=== PATIENT | female | born 1930 | race African-American/Black ===

== ENCOUNTER 2017-03-13 11:15 | Emergency (ER) | payer MEDICARE ==
[~2017-03-13] VITALS: Ht 162.6 cm; Wt 50.0 kg
[~2017-03-13 11:15] MED LIST: ULTRAM50 M1 PO
[2017-03-13 13:30] VITALS: BP 167/81
== END 2017-03-13 13:38 | disposition home or self-care (01) ==
LOC: ED 11:15
DX: R07.81 Pleurodynia (principal); W01.190A Fall on same level from slipping, tripping and stumbling with subsequent striking against furniture, initial encounter; Y92.008 Other place in unspecified non-institutional (private) residence as the place of occurrence of the external cause

== ENCOUNTER 2017-12-03 20:33 | Emergency (ER) | payer MEDICARE ==
[~2017-12-03] VITALS: Ht 162.6 cm; Wt 54.0 kg
[2017-12-03 22:56] VITALS: BP 165/58
== END 2017-12-03 22:57 | disposition home or self-care (01) ==
LOC: ED 20:33
DX: S43.401A Unspecified sprain of right shoulder joint, initial encounter (principal); F03.90 Unspecified dementia, unspecified severity, without behavioral disturbance, psychotic disturbance, mood disturbance, and anxiety; W19.XXXA Unspecified fall, initial encounter; Y92.009 Unspecified place in unspecified non-institutional (private) residence as the place of occurrence of the external cause

== ENCOUNTER 2018-11-19 10:02 | Emergency (ER) | payer MEDICARE ==
[~2018-11-19] VITALS: Ht 162.6 cm; Wt 59.0 kg
[2018-11-19 11:23] LABS: HEMOGLOBIN 13.6 g/dl (12.0-16.0); IMMATURE GRANULOCYTES 0.7 % (0.0-5.0); MEAN CELL VOLUME 98.9 fL CALC (80.0-100.0); MEAN CORPUSCULAR HGB 31.3 pG CALC (26.0-32.0); MEAN CORPUSCULAR HGB CONC 31.6 g/L CALC (32.0-36.0); NEUT# 6.3 thou/uL (2.00-7.15); RED BLOOD COUNT 4.35 mill/uL (4.20-5.60); RED CELL DISTRI WIDTH 12.8 % (11.5-15.5)
[2018-11-19 11:39] LABS: ALBUMIN 4.3 g/dL (3.2-5.0); ALKALINE PHOSPHATASE 68 u/l (38-126); BUN 14 mg/dL (8-23); BUN/CREATININE RATIO 29 (12-20 (CALC)); CARBON DIOXIDE 25 mmol/l (22-30); CHLORIDE 104 mmol/l (95-108); CREATININE 0.5 mg/dL (0.5-1.0); GFR > 60 ML/MIN (>=60 (CALC)); GFR FOR AFR.AMER. > 60 ML/MIN (>=60 (CALC)); SGOT/AST 20 u/l (9-36); SODIUM 139 mmol/l (137-146); TOTAL PROTEIN 7.8 g/dL (6.3-8.2)
[2018-11-19 11:50] LABS: MYOGLOBIN 35 ng/mL (0 - 62)
[2018-11-19 11:55] LABS: ANION GAP 15 (6-22 (CALC)); POTASSIUM 5.4 mmol/l (3.5-5.1)
[2018-11-19] MEDS ORDERED: CLEOCIN300 MG PO (12:13)
[2018-11-19 12:18] VITALS: BP 183/80
== END 2018-11-19 12:39 | disposition home or self-care (01) ==
LOC: ED 10:02
PROVIDERS: Emergency Medicine
DX: K04.7 Periapical abscess without sinus (principal); M84.48XA Pathological fracture, other site, initial encounter for fracture; F03.90 Unspecified dementia, unspecified severity, without behavioral disturbance, psychotic disturbance, mood disturbance, and anxiety; Z91.81 History of falling

== ENCOUNTER 2019-08-16 | Inpatient (IN) | payer MEDICARE ==
--- NOTE | 2019-08-14 11:30 | NUR ---
PT TO ROOM VIA WC
--- NOTE | 2019-08-14 12:00 | NUR ---
FAMILY STATES PT WAS RUNNING A FEVER AT WOUND CARE. DENIES ANY ISSUES YESTERDAY. 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 FAMILY STATES PT IS MORE LETHARGIC TODAY THEN USUAL.
--- NOTE | 2019-08-14 12:59 | NUR ---
PT RESTING ON STRETCHER, FAMILY AT BEDSIDE
[2019-08-14 13:05] LABS: IMMATURE GRANULOCYTES 0.5 % (0.0-5.0); MEAN CELL VOLUME 100.3 fL CALC (80.0-100.0); MEAN CORPUSCULAR HGB 29.6 pG CALC (26.0-32.0); MEAN CORPUSCULAR HGB CONC 29.6 g/L CALC (32.0-36.0); NEUT# 12.35 thou/uL (2.00-7.15); RED BLOOD COUNT 3.34 mill/uL (4.20-5.60); RED CELL DISTRI WIDTH 14.1 % (11.5-15.5)
[2019-08-14 13:06] LABS: HEMATOCRIT 33.5 % (37.0-47.0); HEMOGLOBIN 9.9 g/dl (12.0-16.0)
[2019-08-14 13:38] LABS: LIPASE 75 u/l (23-300)
[2019-08-14 13:44] LABS: ALBUMIN 3.4 g/dL (3.2-5.0); ALKALINE PHOSPHATASE 82 u/l (38-126); ANION GAP 12 (6-22 (CALC)); BILIRUBIN, TOTAL 0.9 mg/dL (0.0-1.4); BUN 18 mg/dL (8-23); BUN/CREATININE RATIO 48 (12-20 (CALC)); CARBON DIOXIDE 30 mmol/l (22-30); CHLORIDE 113 mmol/l (95-108); CREATININE 0.4 mg/dL (0.5-1.0); GFR > 60 ML/MIN (>=60 (CALC)); GFR FOR AFR.AMER. > 60 ML/MIN (>=60 (CALC)); POTASSIUM 4.6 mmol/l (3.5-5.1); SGOT/AST 21 u/l (9-36); SODIUM 150 mmol/l (137-146); TOTAL PROTEIN 7.5 g/dL (6.3-8.2)
--- NOTE | 2019-08-14 13:56 | NUR ---
SBAR PRINTED TO FLOOR
[2019-08-14 14:11] LABS: URINE BILIRUBIN - DIPSTICK NEGATIVE (NEGATIVE); URINE BLOOD DIPSTICK TRACE-INTACT (NEGATIVE); URINE COLOR YELLOW; URINE GLUCOSE - DIPSTICK NEGATIVE (NEGATIVE); URINE KETONE NEGATIVE (NEGATIVE); URINE LEUK ESTERASE NEGATIVE (NEGATIVE); URINE PH 5.5 (4.5-8.0); URINE PROTEIN - DIPSTICK TRACE mg/dL (NEG-TRACE); URINE SPECIFIC GRAVITY 1.025; URINE UROBILINOGEN - DIPSTICK 0.2 E.U./dL (0.2)
[2019-08-14 14:15] LABS: URINE NITRITE - DIPSTICK POSITIVE (Negative)
[2019-08-14 14:21] LABS: URINE BACTERIA MODERATE hpf; URINE MUCUS MODERATE hpf (NONE-FEW); URINE SQUAMOUS EPITHELIAL CELL MANY EPI/hpf (0-FEW)
--- NOTE | 2019-08-14 14:56 | NUR ---
PT RESTING ON STRETCHER, NO COMPLAINTS VOICE BY FAMILY
--- NOTE | 2019-08-14 15:56 | NUR ---
PT RESTING ON STRETCHER, IV PATENT WITH ANTIBIOTICS RUNNING
--- NOTE | 2019-08-14 16:10 | NUR ---
CONTACTED LIZA ALONSO FOR ORDERS.
--- NOTE | 2019-08-14 16:49 | NUR ---
ATTEMPTED REPORT TO [facility]- WILL RETURN CALL
[2019-08-14 17:25] VITALS: BP 181/83
--- NOTE | 2019-08-14 17:32 | NUR ---
MS[facility] CALLED FOR REPORT- [facility] ENGLISH ACCEPTED PT
--- NOTE | 2019-08-14 17:40 | NUR ---
PT ARRIVED TO MED/SURG ROOM 271 IN STABLE CONDITION VIA STRETCHER ACCOMPANIED BY ALAINA BROWN AND FAMILY MEMBERS;PT TRANSPORTED TO HOSPITAL BED WITH X3 PERSON ASSIST;PT A&O X0 AND NON-VERBAL;VS OBTAINED AND ASSESSMENT COMPLETED;RESPIRATIONS SHALLOW ON RA,DIMINISHED LUNG SOUNDS;ABDOMEN SOFT ON PALPATION AND ACTIVE IN ALL 4 QUADRANTS,LAST BM 08/14/19;STRONG PEDAL PULSES;X2 PRESSURE ULCERS NOTED TO LT BUTTOCK AND RT HIP WITH DRESSINGS CDI;DRESSINGS WERE PLACED AT WOUND CARE ON 08/14/19 TOWER EQUIPMENT REPAIRER;#22G TO RFA FLUSHED AND PATENT,FLUIDS INFUSING PER ORDER;ALL MEDICAL HX PRIOVIDED BY FAMILY;FALL AND ALLERGY BANDS APPLIED;ALL SAFETY PRECAUTIONS IN PLACE WITH BED IN THE LOWEST POSITION AND CALL LIGHT IN REACH;WILL CONTINUE TO MONITOR
--- NOTE | 2019-08-14 17:46 | NUR ---
Admission Note Report Given to: [facility] ENGLISH Transported by: Wheelchair X Stretcher Transported with: X Nurse Transporter X Patent IV O2 Weather Analyst Location: ICU X [facility] TRANSPORTED [place] [facility] [place]- FAMILY BROUGHT PTS WC TO ROOM
[2019-08-14 18:32] VITALS: BP 161/86
[2019-08-14 19:20] VITALS: BP 160/76
--- NOTE | 2019-08-14 19:42 | NUR ---
ASSESSMENT COMPLETED. PT. IS NON-VERBAL AND HAS DEMENTIA. PT. IS CONFUSED AND DOES NOT FOLLOW COMMANDS. DRESSINGS TO RIGHT HIP AND AND LEFT BUTTOCK ARE CDI. PT. HAS BLE CONTRACTED AND HANDS PARTIALLUY CONTRACTED WELL.SISTER IS IN AT BEDSIDE. REVIEWD BED CONTROLS AND CALL LIGHT WITH FAMILY MEMBER. IV SITE PATENT AND ORDERED BOLUS INFUSING. BED ALARM SET FOR SAFETY.
[2019-08-14 20:19] LABS: ANION GAP 10 (6-22 (CALC)); BUN 16 mg/dL (8-23); BUN/CREATININE RATIO 49 (12-20 (CALC)); CARBON DIOXIDE 27 mmol/l (22-30); CHLORIDE 114 mmol/l (95-108); CREATININE 0.3 mg/dL (0.5-1.0); GFR > 60 ML/MIN (>=60 (CALC)); GFR FOR AFR.AMER. > 60 ML/MIN (>=60 (CALC)); POTASSIUM 4.1 mmol/l (3.5-5.1); SODIUM 148 mmol/l (137-146)
--- NOTE | 2019-08-14 21:05 | NUR ---
PACKING TO LEFT BUTTOCK FELL OFF DUE TO PT. HAVING AN INCONTINENCE OF BM. CLEANSED WITH NS AND PACKED WITH SALINE GAUZE ROLL AND APPLED DRY DRESSING TO OUTER AREA. ALSO NOTED 2 OTHER OPEN AREAS TO NOTED TO BUTTOCK WELL AND SMALL DUODERMS APPLIED ALONG WITH HEART AQUACEL FOAM DRESSING OVER TOP. PT. REPOSITIONED. FAMILY REMAINS AT BEDSIDE. BED ALARM ON.
[2019-08-15] VITALS (8 sets, daily range): BP systolic 117–181; BP diastolic 53–86
--- NOTE | 2019-08-15 00:17 | NUR ---
PT. CLEANED OF A LARGE INCONTINENCE OF BM AND SMALL BM, STEPHANIE CARE GIVEN, AND NEW PADS AND GOWN APPLIED. REPOSITIONED ONTO LEFT SIDE WITH PILLOW IN BETWEEN LEGS. TEMP 100, COOL WASHCLOTH APPLIED TO FOREHEAD, WILL REASSESS. CALL LIGHT IS IN REACH. FAMILY REMAINS AT BEDSIDE.
[2019-08-15 04:22] LABS: HEMATOCRIT 36.1 % (37.0-47.0); HEMOGLOBIN 10.8 g/dl (12.0-16.0); IMMATURE GRANULOCYTES 0.3 % (0.0-5.0); MEAN CELL VOLUME 100.6 fL CALC (80.0-100.0); MEAN CORPUSCULAR HGB 30.1 pG CALC (26.0-32.0); MEAN CORPUSCULAR HGB CONC 29.9 g/L CALC (32.0-36.0); NEUT# 10.42 thou/uL (2.00-7.15); RED BLOOD COUNT 3.59 mill/uL (4.20-5.60); RED CELL DISTRI WIDTH 14.2 % (11.5-15.5)
--- NOTE | 2019-08-15 04:30 | NUR ---
PT'S IV SITE OCCLUDED AND REMOVED WITH CATHETER TIP INTACT. THIS SAMPLE BODY BUILDER ATTEMPTED X2 TIMES TO RESTART AND UNSUCCESSFUL AT THIS TIME. ALAINA CORRALES PLACED A 24 GAUGE TO RFA. PT. MEDICATED WITH ORDERED APRESOLINE FOR ELEVATED B/P; WILL REASSESS. ALSO THIS SAMPLE BODY BUILDER ALONG WITH OTHER FLOOR NURSE ATTEMPTED TO PLACE ANGLIN CATHETER PER ORDER AND UNSUCCESSFUL. PT'S FAMILY MEMBER IN AGREEMENT TO WAIT FOR NEXT SHIFT TO ATTEMPT ANGLIN CATHETER AGAIN LATER THIS AM.
[2019-08-15 05:25] LABS: ANION GAP 12 (6-22 (CALC)); BUN 15 mg/dL (8-23); BUN/CREATININE RATIO 40 (12-20 (CALC)); CARBON DIOXIDE 25 mmol/l (22-30); CHLORIDE 115 mmol/l (95-108); CREATININE 0.4 mg/dL (0.5-1.0); GFR > 60 ML/MIN (>=60 (CALC)); GFR FOR AFR.AMER. > 60 ML/MIN (>=60 (CALC)); MAGNESIUM 2.2 mg/dL (1.6-2.3); POTASSIUM 3.8 mmol/l (3.5-5.1); SODIUM 148 mmol/l (137-146)
--- NOTE | 2019-08-15 06:12 | NUR ---
PT. CHECKED FOR INCONTINENCE AND NONE NOTED. FAMILY AT BEDSIDE.
--- NOTE | 2019-08-15 07:00 | NUR ---
REPORT RECEIVED FROM ALAINA NICHOLE;PT APPEARS TO BE SLEEPING IN SUPINE POSITION WITH FAMILY MEMBER AT BEDSIDE;INTRODUCED SELF TO FAMILY AND POC DISCUSSED;RESPIRATIONS EVEN AND UNLABORED ON RA;NO S/S OF DISTRESS NOTED;ALL SAFETY PRECAUTIONS IN PLACE WITH BED IN THE LOWEST POSITION AND CALL LIGHT IN REACH;WILL CONTINUE TO MONITOR
--- NOTE | 2019-08-15 08:20 | NUR ---
PT RESTING IN SUPINE POSITION WITH FAMILY AT BEDSIDE;CONFUSED AND NON-VERBAL;VS OBTAINED AND ASSESSMENT COMPLETED;NO S/S OF DISTRESS NOTED;RESPIRATIONS EVEN AND UNLABORED ON RA,DIMINISHED LUNG SOUNDS NOTED;ABDOMEN SOFT ON PALPATION AND ACTIVE IN ALL 4 QUADRANTS;WEAK PEDAL PULSES;DRESSINGS TO RT HIP AND LEFT BUTTOCK CDI;#24G TO RFA INFUSING D5 1/2 NS @ 100ML/HR,SITE APPEARS HEALTHY;PT AND FAMILY DENY ANY ADDITIONAL NEEDS AND IS ENCOURAGED TO CALL FOR ASSISTANCE IF NEEDED;FALL PRECAUTIONS IN PLACE WITH CALL LIGHT IN REACH;WILL CONTINUE TO MONITOR
--- NOTE | 2019-08-15 10:30 | NUR ---
MULTIPLE ATTEMPTS MADE TO INSERT ANGLIN CATHETER UNSUCESSFUL OF URINE RETURN,PT BLADDER SCANNED RESULTING IN >568 IN URINE.ANGLIN CATHETER TO BE PLACED IN HOPES OF URINE RETURN PER ESTELA PERSON;WILL CONTINUE TO MONITOR
--- NOTE | 2019-08-15 12:23 | NUR ---
AT BEDSIDE DISCUSING POC WITH PT AND FAMILY MEMBER.
--- NOTE | 2019-08-15 12:30 | NUR ---
PT APPEARS TO BE SLEEPING IN SUPINE POSITION WITH FAMILY AT BEDSIDE;RESPIRATIONS SHALLOW ON RA;NO S/S OF DISTRESS NOTED;IV FLUIDS INFUSING TO RFA WITH EASE PER ORDER;ANGLIN CATHETER DRAINING TO GRAVITY BUT STILL NO URINE NOTED,ESTELA PERSON AWARE;NO NEW ORDERS RECEIVED AT THIS TIME;ASSESSMENT REMAINS UNCHANGED;ENCOURAGED TO CALL FOR ASSISTANCE IF NEEDED;FALL PRECAUTIONS IN PLACE WITH CALL LIGHT IN REACH;WILL CONTINUE TO MONITOR
--- NOTE | 2019-08-15 14:13 | NUR ---
NEW 16F ANGLIN CATHETER STARTED AT THIS TIME BY ALAINA PÉREZ AND ALAINA GONCALVES.CLOUDY/YELLOW OBTAINED.
--- NOTE | 2019-08-15 15:30 | NUR ---
PT RESTING IN SUPINE POSITION;RESPIRATIONS EVEN AND UNLABORED ON RA;NO S/S OF DISTRESS NOTED;IV FLUIDS INFUSING WITH EASE TO RFA;ANGLIN CATHETER PATENT DRAINING [place]/CLOUDY URINE TO GRAVITY;DRESSING CHANGE COMPLETED BY ALAINA EARL AND PT TOLERATED WELL;ALL SAFETY PRECAUTIONS IN PLACE WITH BED IN THE LOWEST POSITION AND CALL LIGHT IN REACH;WILL CONTINUE TO MONITOR
--- NOTE | 2019-08-15 16:29 | NUR ---
CURRENT BP 173/71 HR 108, PT TO BE MEDICATED WITH PRN APRESOLINE BY ALAINA FINNEGAN;WILL CONTINUE TO MONITOR FOR EFFECTIVENESS
--- NOTE | 2019-08-15 16:50 | NUR ---
BP RE-CHECK 117/56 HR 69
--- NOTE | 2019-08-15 19:46 | NUR ---
REPORT FROM AMBER ENGLISH. PT RESTING IN BED. FAMILY FEEDING PT AT THIS TIME. NO APPARENT DISTRESS NOTED. ANGLIN PATENT DRAINING TO GRAVITY. IV SITE APPEARS HEALTHY. AIR MATTRESS FUNCTIONING PROPERLY. CALL LIGHT WITHIN REACH. WILL CONTINUE TO MONITOR.
--- NOTE | 2019-08-15 23:02 | NUR ---
PT RESTING IN BED. NO APPARENT DISTRESS NOTED. LINNETTE REMAINS PATENT. FAMILY IN ROOM. CALL LIGHT WITHIN REACH. WILL CONTINUE TO MONITOR.
[~2019-08-16] MED LIST changes: +CLEOCIN300 MG PO; +EXELON TD
--- NOTE | 2019-08-16 01:10 | NUR ---
COMPLETE BED BATH AND LINEN CHANGE PROVIDED. PT TOLERATED WELL.
[2019-08-16 04:24] VITALS: BP 169/85
--- NOTE | 2019-08-16 04:30 | NUR ---
DRESSING CHANGED. PT REPOSITIONED. CALL LIGHT WITHIN REACH. WILL CONTINUE TO MONITOR.
[2019-08-16 05:10] LABS: HEMATOCRIT 34.5 % (37.0-47.0); HEMOGLOBIN 10.4 g/dl (12.0-16.0); IMMATURE GRANULOCYTES 0.4 % (0.0-5.0); MEAN CELL VOLUME 100.6 fL CALC (80.0-100.0); MEAN CORPUSCULAR HGB 30.3 pG CALC (26.0-32.0); MEAN CORPUSCULAR HGB CONC 30.1 g/L CALC (32.0-36.0); NEUT# 8.54 thou/uL (2.00-7.15); RED BLOOD COUNT 3.43 mill/uL (4.20-5.60); RED CELL DISTRI WIDTH 14.2 % (11.5-15.5)
[2019-08-16 05:20] LABS: ANION GAP 9 (6-22 (CALC)); BUN 11 mg/dL (8-23); BUN/CREATININE RATIO 36 (12-20 (CALC)); CARBON DIOXIDE 27 mmol/l (22-30); CHLORIDE 115 mmol/l (95-108); CREATININE 0.3 mg/dL (0.5-1.0); GFR > 60 ML/MIN (>=60 (CALC)); GFR FOR AFR.AMER. > 60 ML/MIN (>=60 (CALC)); MAGNESIUM 2.1 mg/dL (1.6-2.3); POTASSIUM 3.6 mmol/l (3.5-5.1); SODIUM 148 mmol/l (137-146)
[2019-08-16 15:10] VITALS: BP 153/70
[2019-08-16 19:30] VITALS: BP 139/66
--- NOTE | 2019-08-16 19:37 | NUR ---
PT ALERT AND NON VERBAL. NO S/S OF DISTRESS NO S/S OF SOB. ON ROOM AIR. ANGLIN PATENT. WOUND CARE TO RIGHT HIM AND LEFT BUTTOCKS. PT TOLERATED WELL. REPOSITIONED. FAMILY MEMBER AT BEDSIDE. IV TO THE RIGHT FOREARM IS PATENT. CALL JAIMES IN REACH. PT ON AIR MATTRESS. BED IN LOWEST POSITION.
[2019-08-17 03:36] VITALS: BP 160/84
--- NOTE | 2019-08-17 05:38 | NUR ---
pt given bath and dressing changed per order. family at the bedside. pt in no distress. meat boner s/s of pain. pt also repositioned.
[2019-08-17 05:49] LABS: HEMATOCRIT 30.4 % (37.0-47.0); HEMOGLOBIN 8.9 g/dl (12.0-16.0); IMMATURE GRANULOCYTES 0.4 % (0.0-5.0); MEAN CORPUSCULAR HGB 29.9 pG CALC (26.0-32.0); MEAN CORPUSCULAR HGB CONC 29.3 g/L CALC (32.0-36.0); NEUT# 8.36 thou/uL (2.00-7.15); RED BLOOD COUNT 2.98 mill/uL (4.20-5.60); RED CELL DISTRI WIDTH 14.2 % (11.5-15.5)
[2019-08-17 06:01] LABS: ANION GAP 8 (6-22 (CALC)); BUN 12 mg/dL (8-23); BUN/CREATININE RATIO 30 (12-20 (CALC)); CARBON DIOXIDE 25 mmol/l (22-30); CHLORIDE 115 mmol/l (95-108); CREATININE 0.4 mg/dL (0.5-1.0); GFR > 60 ML/MIN (>=60 (CALC)); GFR FOR AFR.AMER. > 60 ML/MIN (>=60 (CALC)); POTASSIUM 3.6 mmol/l (3.5-5.1); SODIUM 144 mmol/l (137-146)
[2019-08-17 08:55] VITALS: BP 183/73
[2019-08-17 15:47] VITALS: BP 144/70
[2019-08-17 18:48] VITALS: BP 158/91
--- NOTE | 2019-08-17 20:00 | NUR ---
PATIENT ASSESSED. NO S/S OF PAIN OR DISTRESS. REPOSITIONED FOR COMFORT; ANGLIN DRAING YELOOW CLEAR. BED N LOWEST POSITION CALL LIGHT WITHIN EASY REACH. FAMILY IN ATTENDANT
--- NOTE | 2019-08-18 | NUR ---
MEDICATION ADMINISTERED PER ORDER. PATIENT EDUCATED ON NOTIFYING IT ARCHITECTURE ANALYST IF PAIN RETURNS OR WORSENS. PATIENT EDUCATED ON MEDICATION DOSE, USE AND FREQUENCY. PATIENT VERBALIZED UNDERSTANDING. IT ARCHITECTURE ANALYST WILL CONTINUE TO MONITOR
--- NOTE | 2019-08-18 | NUR ---
PATIENT RESTING WELL. CNC CUTTING OPERATOR ASSISTED AIDE WITH BED BATH. WOUND CARE CARRIED OUT AFTER BED BATH. PT TOLERATED PROCEDURE WELL. PT REPOSITIONED ON RIGHT LATERAL SIDE
--- NOTE | 2019-08-18 03:41 | NUR ---
PATIENT RESTING AT THIS TIME. EYES CLOSED RESPIRATION EVEN AND UNLABORED. NO S/S OF DISTRESS. QUILTING MACHINE OPERATOR WILL CONTINUE TO MONITOR
[2019-08-18 04:10] VITALS: BP 128/74
[2019-08-18 07:39] VITALS: BP 150/81
--- NOTE | 2019-08-18 07:39 | NUR ---
PT RESTING IN BED, FAMILY AT BEDSIDE. PT IS NONVERAL, HAS CONTRACTURES. VITALS OBTAINED. PT IS ON AN AIR MATTRESS. RESP EVEN AND UNLABORED. CALL LIGHT IN REACH,CONTINUE TO MONITOR.
--- NOTE | 2019-08-18 09:40 | NUR ---
PT RESTING IN BED, NO SIGNS OF DISTRESS NOTED, RESP EVEN AND UNLABORED. PT NON VERBAL, SISTER AT BEDSIDE. DISCUSSED POC, DRESSING CHANGES WITH FAMILY MEMBER, VERBALIZED UNDERSTANDING. OLD DRESSING REMOVED, NOTED SEROUS DRAINAGE, CLEANSED WITH NS, PACKED WITH GAUZE SOAKED IN [place] SOLUTION, SECURED WITH ABD AND TAPE, PT TOLERATED WELL. PT HAD A BM, STEPHANIE CARE COMPLETED. REPOSITIONED IN BED, DRESSING ON L HIP COMPLETED, NOTED OPEN AREA TO COCCYX, AQUACEL PLACED. PT ON AN AIRMATTRESS, ANGLIN DRAINING CLEAR YELLOW URINE. ASSESSMENT COMPLETED, CALL LIGHT IN REACH,CONTINUE TO MONITOR.
[2019-08-18 11:33] VITALS: BP 172/70
--- NOTE | 2019-08-18 11:36 | NUR ---
PT GIVEN IV APRESOLINE FOR ELEVATED BP BY RN, PT TOLERATED WELL.
[2019-08-18 12:34] VITALS: BP 129/57
[2019-08-18] MEDS ORDERED: KEFLEX500 MG PO (13:12)
--- NOTE | 2019-08-18 16:42 | NUR ---
Discharge instructions given. Patient verbalizes understanding of same. Discharged in stable condition via Wheelchair to Home with family . All belongings sent with pt.
== END 2019-08-18 16:42 | DRG 871 ==
PROVIDERS: Family Medicine; Nurse Practitioner Family; ADMIT Internal Medicine
PROC: 0T9B70Z Drainage of Bladder with Drainage Device, Via Natural or Artificial Opening (ICD-10-PCS; principal; 2019-08-15)
DX: A41.9 Sepsis, unspecified organism (principal); L89.324 Pressure ulcer of left buttock, stage 4; L89.214 Pressure ulcer of right hip, stage 4; E43 Unspecified severe protein-calorie malnutrition; N39.0 Urinary tract infection, site not specified; Z68.1 Body mass index [BMI] 19.9 or less, adult; R64 Cachexia; F03.91 Unspecified dementia, unspecified severity, with behavioral disturbance; E87.1 Hypo-osmolality and hyponatremia; E87.0 Hyperosmolality and hypernatremia; E44.0 Moderate protein-calorie malnutrition; I10 Essential (primary) hypertension; R33.9 Retention of urine, unspecified; B96.20 Unspecified Escherichia coli [E. coli] as the cause of diseases classified elsewhere; D50.0 Iron deficiency anemia secondary to blood loss (chronic); M62.59 Muscle wasting and atrophy, not elsewhere classified, multiple sites; L08.9 Local infection of the skin and subcutaneous tissue, unspecified; B96.4 Proteus (mirabilis) (morganii) as the cause of diseases classified elsewhere; Z74.01 Bed confinement status; E64.9 Sequelae of unspecified nutritional deficiency; M62.81 Muscle weakness (generalized); A49.9 Bacterial infection, unspecified
CPT/HCPCS: G0378; J1650; S0164

== ENCOUNTER 2019-10-10 | Emergency (ER) | payer MEDICARE ==
[~2019-10-10] MED LIST changes: +KEFLEX500 MG PO
[2019-10-10 12:49] LABS: URINE BILIRUBIN - DIPSTICK NEGATIVE (NEGATIVE); URINE BLOOD DIPSTICK LARGE (NEGATIVE); URINE COLOR YELLOW; URINE GLUCOSE - DIPSTICK NEGATIVE (NEGATIVE); URINE KETONE TRACE mg/dL (NEGATIVE); URINE LEUK ESTERASE MODERATE (NEGATIVE); URINE NITRITE - DIPSTICK POSITIVE (Negative); URINE PH 5.5 (4.5-8.0); URINE PROTEIN - DIPSTICK 30 mg/dL (NEG-TRACE); URINE SPECIFIC GRAVITY 1.025; URINE UROBILINOGEN - DIPSTICK 0.2 E.U./dL (0.2)
[2019-10-10 12:52] LABS: URINE BACTERIA MANY hpf; URINE RBC 50-100 RBC/hpf (0-5)
[2019-10-10 12:53] LABS: URINE WBC >100 WBC/hpf (0-5)
[2019-10-10 12:54] LABS: URINE CALCIUM OXALATE CRYSTALS FEW lpf
[2019-10-10 13:42] LABS: HEMATOCRIT 34.9 % (37.0-47.0); HEMOGLOBIN 10.4 g/dl (12.0-16.0); IMMATURE GRANULOCYTES 0.3 % (0.0-5.0); MEAN CELL VOLUME 94.8 fL CALC (80.0-100.0); MEAN CORPUSCULAR HGB 28.3 pG CALC (26.0-32.0); MEAN CORPUSCULAR HGB CONC 29.8 g/L CALC (32.0-36.0); NEUT# 6.3 thou/uL (2.00-7.15); RED BLOOD COUNT 3.68 mill/uL (4.20-5.60); RED CELL DISTRI WIDTH 14.6 % (11.5-15.5)
[2019-10-10 13:57] LABS: ALKALINE PHOSPHATASE 69 u/l (38-126); ANION GAP 8 (6-22 (CALC)); BUN 20 mg/dL (8-23); BUN/CREATININE RATIO 56 (12-20 (CALC)); CARBON DIOXIDE 29 mmol/l (22-30); CHLORIDE 110 mmol/l (95-108); CREATININE 0.4 mg/dL (0.5-1.0); GFR > 60 ML/MIN (>=60 (CALC)); GFR FOR AFR.AMER. > 60 ML/MIN (>=60 (CALC)); POTASSIUM 4.3 mmol/l (3.5-5.1); SGOT/AST 18 u/l (9-36); SODIUM 143 mmol/l (137-146); TOTAL PROTEIN 7.1 g/dL (6.3-8.2)
[2019-10-10 13:58] LABS: BILIRUBIN, TOTAL 0.4 mg/dL (0.0-1.4)
[2019-10-10] MEDS ORDERED: CIPROFLOXACN500 MG PO (14:14)
== END 2019-10-10 14:41 | disposition home or self-care (01) ==
PROVIDERS: Family Medicine
DX: N39.0 Urinary tract infection, site not specified (principal); B96.20 Unspecified Escherichia coli [E. coli] as the cause of diseases classified elsewhere; I10 Essential (primary) hypertension; F03.90 Unspecified dementia, unspecified severity, without behavioral disturbance, psychotic disturbance, mood disturbance, and anxiety; S31.819D Unspecified open wound of right buttock, subsequent encounter; S71.002D Unspecified open wound, left hip, subsequent encounter; X58.XXXD Exposure to other specified factors, subsequent encounter; Z96.0 Presence of urogenital implants; L89.214 Pressure ulcer of right hip, stage 4; L89.324 Pressure ulcer of left buttock, stage 4; E44.0 Moderate protein-calorie malnutrition; D64.9 Anemia, unspecified; M62.81 Muscle weakness (generalized); A49.9 Bacterial infection, unspecified; Z51.5 Encounter for palliative care; L89.152 Pressure ulcer of sacral region, stage 2

== ENCOUNTER 2019-11-16 11:12 | Inpatient (IN) | payer MEDICARE ==
[~2019-11-16] VITALS: Ht 165.1 cm; Wt 36.4 kg
[~2019-11-16 11:12] MED LIST changes: +CIPROFLOXACN500 MG PO
--- NOTE | 2019-11-16 11:12 | NUR ---
PT TO ROOM VIA EMS STRETCHER.
[2019-11-16] MEDS ORDERED: ATIVAN ORAL2 MG/1 ML PO (11:36)
[2019-11-16] MEDS ORDERED: MACRODANTIN100 MG PO (11:37)
--- NOTE | 2019-11-16 12:11 | NUR ---
PT TO RADIOLOGY AT THIS TIME
[2019-11-16 12:47] LABS: HEMATOCRIT 37.1 % (37.0-47.0); HEMOGLOBIN 10.8 g/dl (12.0-16.0); IMMATURE GRANULOCYTES 0.3 % (0.0-5.0); MEAN CORPUSCULAR HGB 27.1 pG CALC (26.0-32.0); MEAN CORPUSCULAR HGB CONC 29.1 g/dL CAL (32.0-36.0); NEUT# 6.28 thou/uL (2.00-7.15); RED BLOOD COUNT 3.99 mill/uL (4.20-5.60); RED CELL DISTRI WIDTH 14.6 % (11.5-15.5)
[2019-11-16 12:59] LABS: URINE BILIRUBIN - DIPSTICK NEGATIVE (NEGATIVE); URINE BLOOD DIPSTICK MODERATE (NEGATIVE); URINE COLOR YELLOW; URINE GLUCOSE - DIPSTICK NEGATIVE (NEGATIVE); URINE KETONE NEGATIVE (NEGATIVE); URINE LEUK ESTERASE LARGE (NEGATIVE); URINE NITRITE - DIPSTICK NEGATIVE (Negative); URINE PH 5.5 (4.5-8.0); URINE PROTEIN - DIPSTICK 30 mg/dL (NEG-TRACE); URINE SPECIFIC GRAVITY 1.025; URINE UROBILINOGEN - DIPSTICK 0.2 E.U./dL (0.2)
[2019-11-16 13:00] LABS: URINE BACTERIA MODERATE hpf; URINE EPITHELIAL CELLS FEW EPI/hpf (0-FEW); URINE WBC 50-100 WBC/hpf (0-5)
--- NOTE | 2019-11-16 13:00 | NUR ---
PT RESTING ON STRETCHER; NO S/S OF DISTRESS NOTED; VSS; FAMILY ADVISED OF CONTINUED WAIT TIME; DR WHIPPLE AT BEDSIDE TO DISCUSS ADMISSION
--- NOTE | 2019-11-16 13:34 | NUR ---
REPORT GIVEN TO ALAINA SONG
[2019-11-16 13:47] LABS: ALBUMIN 3.2 g/dL (3.2-5.0); ALKALINE PHOSPHATASE 77 u/l (38-126); ANION GAP 9 (6-22 (CALC)); BILIRUBIN, TOTAL 0.5 mg/dL (0.0-1.4); BUN 14 mg/dL (8-23); BUN/CREATININE RATIO 43 (12-20 (CALC)); CARBON DIOXIDE 28 mmol/l (22-30); CHLORIDE 108 mmol/l (95-108); CREATININE 0.3 mg/dL (0.5-1.0); GFR > 60 ML/MIN (>=60 (CALC)); GFR FOR AFR.AMER. > 60 ML/MIN (>=60 (CALC)); SGOT/AST 16 u/l (9-36); SODIUM 140 mmol/l (137-146); TOTAL PROTEIN 7.4 g/dL (6.3-8.2)
[2019-11-16 13:49] LABS: MYOGLOBIN 35 ng/mL (0 - 62)
--- NOTE | 2019-11-16 14:17 | NUR ---
DR. WHIPPLE AND STAFF PULLED DOWN BANDAGES , THERE IS TWO ON RIGHT HIP, AND HAS BEEN PACKED AND CLEANED THIS AM, THERE IS ONE ON LEFT HIP THAT WAS DEBREDED AND PACKED YESTERDAY PER CAREGIVER. CAREGIVER STATES THE TWO ON RIGHT HIP HAS BEEN THERE SINCE MAY AND THE ONE ON LEFT HIP SINCE FIRST August
--- NOTE | 2019-11-16 15:15 | NUR ---
PT REPORT GIVEN TO SORAYA FOR CONTINUATION OF CARE.
--- NOTE | 2019-11-16 15:49 | NUR ---
PT SENT TO FLOOR WITH STRETCHER, AND IV FLUIDS
[2019-11-16 15:58] VITALS: BP 167/75
--- NOTE | 2019-11-16 16:00 | NUR ---
PT ARRIVES TO ROOM 270 VIA STRETCHER FROM ER, ACCOMPANIED BY DUNCAN FOLEY. PT OPENS EYES, BUT IS NONVERBAL. DECUBITIS ULCERS TO BILATERAL HIPS. PICTURES TAKEN AND IN CHART. PT IS CONTRACTED, ALLOWING FOR EITHER RIGHT SIDE LYING OR LEFT SIDE LYING. SISTER CALLED, STATES THAT PT WILL EAT WHEN FED. NO DISTRESS NOTED.
--- NOTE | 2019-11-16 18:30 | NUR ---
REPORT RECEIVED FROM SORAYA FOLEY. PT NOTED SITTING UP IN BED AT THIS TIME. HOT KNIFE FOXING CUTTER FEEDING PT, TOLERATING WELL. CONTRACTURES NOTED TO ARMS AND LEGS. WOUNDS NOTED WITH DRESSING, CDI. PT INCONTINENT OF BOWEL AND BLADDER. ANGLIN IN PLACE, PATENT DRAINING TO GRAVITY. DNR ON FILE. PT ALERT BUT NONVERBAL. CALL LIGHT WITHIN REACH. WILL CONTINUE TO MONITOR.
[2019-11-16 19:30] VITALS: BP 150/66
--- NOTE | 2019-11-16 20:26 | NUR ---
PT REPOSITIONED ON BACK AT THIS TIME. NO APPARENT DISTRESS NOTED. ANGLIN REMAINS PATENT. CALL LIGHT WITHIN REACH. WILL CONTINUE TO MONITOR.
[2019-11-16 23:57] VITALS: BP 150/66
--- NOTE | 2019-11-17 00:15 | NUR ---
PT CHEWING ON BLANKETS. STRAWBERRY ENSURE PROVIDED. PT DRANK 100% AT THIS TIME. NO APPARENT DISTRESS NOTED. LINNETTE REMAINS PATENT. CALL LIGHT WITHIN REACH. WILL CONTINUE TO MONITOR.
[2019-11-17 04:00] VITALS: BP 147/50
--- NOTE | 2019-11-17 04:05 | NUR ---
PT RESTING IN BED WITH EYES CLOSED. NO APPARENT DISTRESS NOTED. CALL LIGHT WITHIN REACH. WILL CONTINUE TO MONITOR.
[2019-11-17 05:04] VITALS: BP 147/50
[2019-11-17 08:16] VITALS: BP 170/74
--- NOTE | 2019-11-17 08:16 | NUR ---
PT LAYING IN BED. PT NONVERBAL. ALERT TO SOUND AND NAME. NO DISTRESS NOTED. DRESSINGS TO HIPS WITH SOME SHADOWING PRESENT. HEEL PROTECTORS IN PLACE. CONTRACTURES NOTED. NO PHYSICAL SIGN OF PAIN, AGITATION OR DISCOMFORT AT THIS TIME. CONTINUE TO MONITOR.
--- NOTE | 2019-11-17 08:40 | NUR ---
DRESSING CHANGE DONE TO BOTH HIPS AND LT BUTTOCK. SKIN TEAR NOTED TO RT KNEE. SEE CHART FOR PHOTOS. ORDERS TO BE PLACED BY MAIL CARRIER AND CLERK OF WET TO DRY DRESSINGS UNTIL WOUND CARE IS ABLE TO ASSESS PT. PT TOLERATED WELL.
--- NOTE | 2019-11-17 15:16 | NUR ---
TEMP 100.1 AC TURNED ON AND TYLENOL GIVEN FOR TEMP. WILL REASSESS.
[2019-11-17 16:11] VITALS: BP 163/65
[2019-11-17 17:54] VITALS: BP 136/67
[2019-11-17 18:28] VITALS: BP 160/78
--- NOTE | 2019-11-17 21:00 | NUR ---
PT TURNED ONTO LEFT SIDE.
--- NOTE | 2019-11-17 21:10 | NUR ---
ATTEMPTED TO RETURN CALL FROM FAMILY AT PROVIDED NUMBER, . NO ANSWER. VOICEMAIL BOX NOT SET UP, UNABLE TO LEAVE VOICE MAIL.
--- NOTE | 2019-11-17 23:00 | NUR ---
COMPLETE BED BATH AND LINEN/ GOWN CHANGE COMPLETED BY CNAS.
--- NOTE | 2019-11-17 23:36 | NUR ---
PHYSICAL ASSEMENT COMPLETE. VS TAKEN BY OPTICAL WORKER @ 9135 ASSESSED. PT APPEARS COMFORTABLE AND IN NO APPARENT DISTRESS. LAYING ON RIGHT SIDE. BED LOCKED IN LOW POSITION W/ BEDRAILS UP X2, ITEMS WITHIN REACH.
--- NOTE | 2019-11-18 01:02 | NUR ---
PT TURNED BY DISASTER OR DAMAGE CONTROL SPECIALIST. PT APPEARS TO BE SLEEPING COMFORTABLY. NO APPARENT DISTRESS. RESPIRATIONS REGULAR AND UNLABORED.CALL JAIMES REMAINS WITHIN REACH. BED REMAINS LOCKED IN LOW POSITION W/ BEDRAILS UP X2, ITEMS REMAIN WITHIN REACH.
--- NOTE | 2019-11-18 02:25 | NUR ---
DRESSING AND PACKING REMOVED FROM R HIP. SEROUSANGUINOUS DRAINAGE TO BOTH. MODERATE AMOUNT. CIRCULAR STG4 WOUND W/ UNDERMINING AROUND ENTIRE WOUND. VISIBLE WOUND BED RED AND MOIST 'BEEFY'. NO ODOR NOTED FLUFFED SALINE MOISTENED 4X4s GENTLY PACKED INTO WOUND. FOLDED ABD PAD PLACED OVER TOP AND SECURED W/ PAPER TAPE. PT TOLERATED DRESSING CHANGE W/ MINIMAL SIGNS OF DISCOMFORT.
--- NOTE | 2019-11-18 03:09 | NUR ---
PT TURNED ONTO R SIDE. L HIP DRESSING REMOVED. L HIP WOUND IS CIRCULAR W/ ESCHAR OVER ENTIRE WOUND. FLUFFED SALINE MOISTENED 4X4 APPLIED, ABD PAD SECURED OVER TOP W/ PAPER TAPE.
[2019-11-18 04:45] VITALS: BP 153/73
[2019-11-18 07:19] VITALS: BP 155/76
--- NOTE | 2019-11-18 07:19 | NUR ---
PT RESTING IN BED, NONVERBAL, DISCUSSED POC, NOT READY DUE TO BARRIERS. NOTED DRESSING TO R HIP CDI, ANGLIN DRAINING TO GRAVITY, PT TURNED IN BED TO L SIDE, DRESSING TO L HIP CDI, PT HAS CONTRACTURES, HEEL PROTECTORS IN PLACE, PILLOWS FOR COMFORT. IVF INFUSING, ASSESSMENT COMPLETED, CALL LIGHT IN REACH,CONTINUE TO MONITOR.
--- NOTE | 2019-11-18 09:32 | NUR ---
PT RESTING IN BED, DISCUSSED EMS SITE WITH BUDGET CONTROLLER, SITE PATENT, NO SIGNS OF REDNESS OR SWELLING, OK TO LEAVE EMS SITE PER BUDGET CONTROLLER.
--- NOTE | 2019-11-18 11:33 | NUR ---
PT RESTING IN BED, NO SIGNS OF DISTRESS NOTED, RESP EVEN AND UNLABORED. PT REPOSITIONED, CALL LIGHT IN REACH,CONTINUE TO MONITOR.
--- NOTE | 2019-11-18 13:30 | NUR ---
IV ROCEPHIN INITATED, AIR MATTRESS ARRIVED, DRESSINGS X2 COMPLETED, PT TOLERATED WELL, PT PLACED ON AIR MATTRESS. CALL LIGHT IN REACH,CONTINUE TO MONITOR.
--- NOTE | 2019-11-18 13:58 | NUR ---
S: PIYUSH ZHONG is a 89 F who presents with UTI and multiple decubiti. She has a history of dementia and severe dementia. All medications in patient's chart were reviewed. O: VS: BP 155/76 mmHg, P 84 bpm, RR 18 breaths/min, T 98.9 F W 36.741 kg, HT 64 in, Scr 1 mg/dl, CrCl 23 ml/min A: Urine culture shows E coli P: Patient is on ceftriaxone 1g IV q24h. Vancomycin ordered for pharmacy to dose. Start Vancomycin 500mg IV Q36H. Pt received 1g IV on 11/16 @ 1700. First dose to be given 11/18 @ 0500. Vancomycin trough is drawn before the 4th dose on 11/22 @ 1630. Vancomycin goal trough is between 10-20 mcg/ml. Pharmacy will follow and or advise on antibiotics use as needed.
--- NOTE | 2019-11-18 16:33 | NUR ---
PT'S FAMILY BROUGHT IN RIVASTIGMINE PATCH, PHARMACY TO PROFILE.
--- NOTE | 2019-11-18 16:35 | NUR ---
PT RESTING IN BED, NO SIGNS OF DISTRESS NOTED, RESP EVEN AND UNLABORED, CALL LIGHT IN REACH,CONTINUE TO MONITOR.
[2019-11-18 16:57] VITALS: BP 154/67
--- NOTE | 2019-11-18 19:00 | NUR ---
REPORT RECEIVED BY Amari ARCE LPN, CARE OF PT TAKEN OVER AT THIS TIME.
[2019-11-18 19:03] VITALS: BP 142/69
--- NOTE | 2019-11-18 20:00 | NUR ---
PHYSICAL ASSEMENT COMPLETE. VS TAKEN BY RECEIVING ASSOCIATE STORE @ 1908 ASSESSED. PT APPEARS COMFORTABLE AND IN NO DISTRESS. AIR MATTRESS IS INFLATED AND FUNCTIONIMG.BED LOCKED IN LOW POSITION W/ BEDRAILS UP X2, ITEMS WITHIN REACH.
--- NOTE | 2019-11-19 01:34 | NUR ---
PT APPEARS TO BE SLEEPING COMFORTABLY. NO APPARENT DISTRESS. RESPIRATIONS REGULAR AND UNLABORED. AIR MATTRESS INFLATED AND FUNCTIONING.BED REMAINS LOCKED IN LOW POSITION W/ BEDRAILS UP X2, ITEMS REMAIN WITHIN REACH.
--- NOTE | 2019-11-19 03:00 | NUR ---
DRESSING TO B/L HIP WOUNDS REMOVED. WOUND TO INNER L GLUTEAL CLEFT OPEN TO AIR. PICTURES TAKEN OF ALL WOUNDS FOR DOCUMENTATION. SALINE MOISTENED FLUFFED 4X4s GENTLY PACKED INTO WOUND BEDS, COVERED W/ ABD AND SECURED W/ PAPER TAPE. L GLUTEAL CLEFT WOUND LEFT OPEN TO AIR.
[2019-11-19 04:20] VITALS: BP 139/70
[2019-11-19 05:18] LABS: IMMATURE GRANULOCYTES 0.4 % (0.0-5.0); MEAN CELL VOLUME 89.5 fL CALC (80.0-100.0); MEAN CORPUSCULAR HGB 27.7 pG CALC (26.0-32.0); MEAN CORPUSCULAR HGB CONC 30.9 g/dL CAL (32.0-36.0); NEUT# 5.59 thou/uL (2.00-7.15); RED BLOOD COUNT 3.25 mill/uL (4.20-5.60); RED CELL DISTRI WIDTH 14.5 % (11.5-15.5)
[2019-11-19 05:21] LABS: HEMATOCRIT 29.1 % (37.0-47.0)
[2019-11-19 05:30] LABS: ANION GAP 7 (6-22 (CALC)); BUN 6 mg/dL (8-23); BUN/CREATININE RATIO 22 (12-20 (CALC)); CARBON DIOXIDE 30 mmol/l (22-30); CHLORIDE 105 mmol/l (95-108); CREATININE 0.3 mg/dL (0.5-1.0); GFR > 60 ML/MIN (>=60 (CALC)); GFR FOR AFR.AMER. > 60 ML/MIN (>=60 (CALC)); POTASSIUM 3.7 mmol/l (3.5-5.1); SODIUM 138 mmol/l (137-146)
--- NOTE | 2019-11-19 07:20 | NUR ---
REPORT RECEIVED FROM ALAINA PASCUAL;PT APPEARS TO BE SLEEPING IN SUPINE POSITION;NO S/S OF DISTRESS NOTED;RESPIRATIONS EVEN AND UNLABORED;IV FLUIDS INFUSING WITH EASE PER ORDER;ANGLIN CATETER IN PLACE;ALL SAFETY PRECAUTIONS NOTED WITH BED IN THE LOWEST POSITION AND CALL LIGHT IN REACH;WILL CONTINUE TO MONITOR
[2019-11-19 09:27] VITALS: BP 164/76
--- NOTE | 2019-11-19 09:30 | NUR ---
PT RESTING IN SEMI FOWLERS POSITION,NON-VERBAL;VS OBTAINED AND ASSESSMENT COMPLETED;NO S/S OF DISTRESS NOTED;RESPIRATIONS EVEN AND UNLABORED ON RA,DIMINISHED LUNG SOUNDS;ABDOMEN SOFT ON PALPATION AND ACTIVE IN ALL 4 QUADRANTS;WEAK PEDAL PULSES;MULTIPLE PRESSURE ULCERS TO RT AND LEFT HIP NOTED WITH DRESSING CDI;EMS #20G TO RFA INFUSING NS @ 100ML/HR,SITE APPEARS HEALTHY,ANRP OK TO LEAVE IV SITE DUE TO EXPIRATION;ANGLIN CATHETER PATENT DRAINING TO GRAVITY WITH EASE;ALL SAFETY PRECAUTIONS IN PLACE WITH BED IN THE LOWEST POSITION AND BED ALARM ON FOR SAFETY;CALL LIGHT IN REACH;WILL CONTINUE TO MONITOR
[2019-11-19 09:32] VITALS: BP 164/76
[2019-11-19] MEDS ORDERED: DOXYCYCL HYC100 MG PO (10:37)
[2019-11-19] MEDS ORDERED: KEFLEX500 MG PO (10:37)
--- NOTE | 2019-11-19 12:00 | NUR ---
PT RESTING IN SEMI FOWLERS POSITION;RESPIRATIONS EVEN AND UNLABORED ON RA;NO S/S OF DISTRESS NOTED;PT REMAINS NON-VERBAL;IV SITE NOTED TO BE INFILTRATED,SITE REMOVED WITH CATHETER INTACT;ANGLIN CATHETER REMAINS PATENT DRAINING TO GRAVITY WITH EASE;ALL SAFETY PRECAUTIONS IN PLACE WITH CALL LIGTH IN REACH;WILL CONTINUE TO MONITOR
--- NOTE | 2019-11-19 13:40 | NUR ---
VOICEMAIL LEFT FOR TIBURCIO ZHONG (SISTER) ABOUT DISCHARGE.AWAITING CALL BACK.
--- NOTE | 2019-11-19 15:50 | NUR ---
Discharge instructions given. Patient verbalizes understanding of same. Discharged in stable condition via Wheelchair to Home with family. All belongings sent with pt. PT TRANSPOORTED TO LOBBY IN STABLE CONDITION VIA WHEELCHAIR ACCOMPANIED BY LEE ANN AND ALAINA KELLER;HOME MEDICATION PROVIDED TO FAMILY FOR D/C HOME WELL D/C INSTRUCTIONS TO F/U WITH HOME HEALTH AND WOUND CARE.ALSO TAKE MEDICATIONS PRESCRIBED.
--- NOTE | 2019-11-20 10:31 | NUR ---
CALLED [facility] TO RETURN MATTRESS FOR THIS PT. SPOKE TO MEL WAS GIVEN SAME CONFIRMATION NUMBER [id number] STATED IT IS IN HER SYSTEM TO PLACE DIRECT CARE SUPERVISOR OF THIS MATTRESS.
== END 2019-11-19 15:50 | DRG 689 ==
LOC: ED 11:12 → ED-I 14:03 → ED 14:25 → MS2 14:26
PROVIDERS: Emergency Medicine; Nurse Practitioner Family; ADMIT Internal Medicine; ATTEND Internal Medicine
DX: N39.0 Urinary tract infection, site not specified (principal); L89.224 Pressure ulcer of left hip, stage 4; L89.214 Pressure ulcer of right hip, stage 4; L89.324 Pressure ulcer of left buttock, stage 4; E43 Unspecified severe protein-calorie malnutrition; Z68.1 Body mass index [BMI] 19.9 or less, adult; I10 Essential (primary) hypertension; F03.90 Unspecified dementia, unspecified severity, without behavioral disturbance, psychotic disturbance, mood disturbance, and anxiety; D64.9 Anemia, unspecified; E77.8 Other disorders of glycoprotein metabolism; R32 Unspecified urinary incontinence; B96.20 Unspecified Escherichia coli [E. coli] as the cause of diseases classified elsewhere; Z87.898 Personal history of other specified conditions; Z87.440 Personal history of urinary (tract) infections; Z88.0 Allergy status to penicillin; Z74.01 Bed confinement status